=== PATIENT | male | born 1995 | race Caucasian/White ===

== ENCOUNTER 2025-06-21 10:20 | Emergency (ER) | payer OTHER ==
[~2025-06-21] VITALS: Ht 182.9 cm; Wt 96.8 kg
[2025-06-21] MEDS ORDERED: SODIUM CHLORIDE 0.9% 1,000 ML IV ONE (10:45)
[2025-06-21] MEDS ORDERED: MORPHINE SULFATE 4 MG/ML VIAL IV ONE (10:45)
[2025-06-21 10:48] LABS: BASOPHILS 0.1 % (0.2-1.2); EOSINOPHILS 2.5 % (0.8-7.0); LYMPHOCYTES 15.5 % (21.8-53.1); MCH 30.2 PG (25.7-32.2); MCHC 34.2 g/dL (32.3-36.5); MCV 88.4 fL (79.0-92.2); MONOCYTES 12.7 % (5.3-12.2); NEUTROPHILS 68.9 % (34.0-67.9); RBC 4.57 M/uL (4.63-6.08)
[2025-06-21 11:06] LABS: ALT (SGPT) 18.0 U/L (14-59); AST (SGOT) 11.0 U/L (15-37); GLOMERULAR FILTRATION RATE,EST 122.0 mL/min (>60); PROTEIN, TOTAL 6.9 g/dL (6.4-8.2); UREA NITROGEN 10.0 mg/dL (7-18)
[2025-06-21] MEDS ORDERED: ACETAMINOPHEN 500 MG TAB PO ONE (11:45)
[2025-06-21 12:21] LABS: BLOOD/HGB, URINE NEGATIVE (Negative); KETONE, URINE SMALL (Negative); LEUK ESTERASE, URINE NEGATIVE (negative); NITRITE, URINE NEGATIVE (negative)
[2025-06-21] MEDS ORDERED: ONDANSETRON ODT4 MG PO (12:40)
[2025-06-21] MEDS ORDERED: PRILOSEC OTC20 MG PO (12:40)
[2025-06-21] MEDS ORDERED: IBUPROFEN 600 MG TAB PO ONE (12:45)
[2025-06-21 12:49] VITALS: BP 116/77
== END 2025-06-21 12:49 | disposition home or self-care (01) ==
LOC: ED 10:20
PROVIDERS: Emergency Medicine
DX: K29.70 Gastritis, unspecified, without bleeding (principal)
CPT/HCPCS: 36415; 74177; 80053; 81003; 83605; 83690; 85025; 96374; 96375; 99284-25; A9270; J2270; J2405; J7030